=== PATIENT | male | born 1995 | race American Indian/Alaskan Native ===

== ENCOUNTER 2022-01-11 16:33 | Emergency (ER) | payer SELFPAY ==
--- NOTE | 2022-01-11 21:16 | Emergency Department Report ---
ED Lower Extremity HPI - General Chief Complaint: Extremity Injury, Lower Stated Complaint: FOOT PAIN Time Seen by Provider: 01/11/22 21:15 Source: patient Mode of arrival: Ambulatory Limitations: No Limitations - History of Present Illness Initial Comments: 26-year-old male with some department complaining of left foot pain after he was being crushed between 2 pallets yesterday and now having dull throbbing pain worse with palpation and range of motion. No reports no pain to the ankle or knee. MD Complaint: foot injury -: Gradual Injury: Foot: Left Type of Injury: blunt Severity: mild, moderate Improves With: nothing Worsens With: nothing Associated Symptoms: swelling, able to partially bear weight - Related Data Previous Rx's Medication Instructions Recorded Last Taken Type Ketorolac [Toradol] 10 mg PO Q6H PRN #15 tablet 01/11/22 Unknown Rx ED Review of Systems ROS: Stated complaint: FOOT PAIN Other details as noted in HPI Comment: All other systems reviewed and negative ED Past Medical Hx - Medications Home Medications: Home Medications Medication Instructions Recorded Confirmed Last Taken Type Ketorolac [Toradol] 10 mg PO Q6H PRN #15 tablet 01/11/22 Unknown Rx ED Physical Exam - General Limitations: No Limitations General appearance: alert, in no apparent distress - Head Head exam: Present: atraumatic, normocephalic - Eye Eye exam: Present: normal appearance, PERRL - ENT ENT exam: Present: mucous membranes moist - Neck Neck exam: Present: normal inspection - Respiratory Respiratory exam: Present: normal lung sounds bilaterally. Absent: respiratory distress - Cardiovascular Cardiovascular Exam: Present: regular rate, normal rhythm. Absent: systolic murmur, diastolic murmur, rubs, gallop - GI/Abdominal GI/Abdominal exam: Present: soft, normal bowel sounds - Rectal Rectal exam: Present: deferred - Extremities Exam Extremities exam: Present: normal inspection, tenderness, joint swelling - Back Exam Back exam: Present: normal inspection. Absent: CVA tenderness (R), CVA tenderness (L), muscle spasm - Neurological Exam Neurological exam: Present: alert, oriented X3, CN II-XII intact, normal gait. Absent: abnormal gait, motor sensory deficit - Psychiatric Psychiatric exam: Present: normal affect, normal mood - Skin Skin exam: Present: warm, dry, intact, normal color. Absent: rash ED Course Vital Signs 01/11/22 16:56 Temperature 98.4 F Pulse Rate 64 Respiratory 20 Rate Blood Pressure 144/95 [Right] O2 Sat by Pulse 97 Oximetry ED Lower Extremity MDM - Radiology Data Radiology results: report reviewed [facility] [address] [place] [address] XRay Report Signed Patient: LIAM DELEON MR#: [id number] : 1995 Acct:[id number] Age/Sex: 26 / M ADM Date: 01/11/22 Loc: ED Attending Dr: Ordering Physician: EARL SEGURA Date of Service: 01/11/22 Procedure(s): XR foot 3+V LT Accession Number(s): [id number] cc: EARL SEGURA Fluoro Time In Minutes: LEFT FOOT 3 VIEW(S) INDICATION / CLINICAL INFORMATION: foot pain crush COMPARISON: None available. FINDINGS: BONES / JOINT(S): No acute fracture or subluxation. Questionable fibro-osseous coalition of the talocalcaneal joint, doubtful acute clinical significance. If clinically warranted, this could be further evaluated with MRI of the left hindfoot in the outpatient setting. Plantar calcaneal enthesophyte. SOFT TISSUES: No significant abnormality. ADDITIONAL FINDINGS: None. Signer Name: Vu Ronquillo MD Signed: 01/11/2022 9:42 PM Workstation Name: [id number] Transcribed By: SB Dictated By: VU RONQUILLO MD Electronically Authenticated By: VU RONQUILLO MD Signed Date/Time: 01/11/222141 DD/ 40 TD/TT: Critical care attestation.: If time is entered above; I have spent that time in minutes in the direct care of this critically ill patient, excluding procedure time. ED Disposition Clinical Impression: Contusion of foot, left Disposition: 01 HOME / SELF CARE / HOMELESS Is pt being admited?: No Does the pt Need Aspirin: No Condition: Stable Instructions: How to Use Cold Therapy, Wezy-ps-Mlkh, Foot Contusion, [id number], Crush Injury of the Foot Prescriptions: Ketorolac [Toradol] 10 mg PO Q6H PRN #15 tablet PRN Reason: Pain Referrals: [facility] [Provider Group] - 3-5 Days
--- NOTE | 2022-01-11 21:47 | XRay Report ---
LEFT FOOT 3 VIEW(S) INDICATION / CLINICAL INFORMATION: foot pain crush COMPARISON: None available. FINDINGS: BONES / JOINT(S): No acute fracture or subluxation. Questionable fibro-osseous coalition of the taloc alcaneal joint, doubtful acute clinical significance. If clinically warranted, this could be further evaluated with MRI of the left hindfoot in the outpatient setting. Plantar calcaneal enthesophyte. SOFT TISSUES: No significant abnormality. ADDITIONAL FINDINGS: None. Signer Name: Vu Bolton MD Signed: 01/11/2022 9:42 PM Workstation Name: [id number]
[2022-01-11 23:33] VITALS: BP 138/67
== END 2022-01-11 23:29 | disposition home or self-care (01) ==
LOC: ED 16:33
DX: S90.32XA Contusion of left foot, initial encounter (principal); X58.XXXA Exposure to other specified factors, initial encounter; Y93.89 Activity, other specified; Y92.89 Other specified places as the place of occurrence of the external cause; Y99.8 Other external cause status
CPT/HCPCS: 99283